=== PATIENT | female | born 1960 | race Caucasian/White ===

== ENCOUNTER 2016-05-03 08:56 | Day surgery (SDC) | payer MEDICAID ==
[2016-05-03] VITALS (253 sets, daily range): BP systolic 98–131; BP diastolic 41–82; PULSE 57–69; TEMP 97.5–98.7; O2SAT 90–100
[~2016-05-03] VITALS: Ht 162.6 cm; Wt 94.1 kg
[~2016-05-03 08:56] MED LIST: ACTOS 15MG TAB15 MG PO; ACTOS 45MG45 MG/TAB PO; ACTOS30 MG PO; ASPIRIN 81M81 MG/TA2 PO; ASPIRIN E.C. 8181 MG PO; BUPROPION HCL150 M1 PO; BUSPAR; BUSPAR DIVIDOSE15 MG PO; BUSPIRONE; CEPHALEXIN500 M1 PO; CHLOR TRIMETON 44 MG PO; CHLORTHALIDONE25 MG PO; FENTANYL; FENTANYL 75MCG TP; FORTAMET1000 MG PO; FORTAMET500 MG PO; IBUPROFEN600 MG PO; JANUVIA50 MG PO; KLONOPIN 0.5MG0.5 MG PO; KLONOPIN 1MG1 MG PO; KLONOPIN1 MG PO; LORTAB 5/500 501 TAB PO; LYRICA; LYRICA100 MG PO; METFORMIN500 MG PO; METHOCARBAMOL500 MG PO; METHOCARBAMOL750 MG PO; MICARDIS 40MG40 MG PO; MICARDIS20 MG PO; MICARDIS40 MG PO; MOTRIN 200200 MG/TAB PO; MOTRIN 600600 MG/TAB PO; PRAVACHOL10 MG PO; PROTONIX 40MG T40 MG PO; PROZAC 10MG10 MG PO; PROZAC10 MG PO; ROBAXIN 75750 MG/TAB PO; VICODIN 5/5001 UDTAB PO; WELLBUTRIN 100100 MG PO; WELLBUTRIN SR150 M1 PO; WELLBUTRIN75 MG PO; XANAX 0.5MG0.5 MG PO; ZOCOR 40MG40 MG PO
[2016-05-03 09:52] LABS: CALCIUM 9.3 mg/dL (8.4-10.2); CREATININE, serum 0.73 mg/dL (0.52-1.25); POTASSIUM 3.9 mmol/L (3.4-5.0)
[2016-05-03 10:44] LABS: MEAN CELL VOLUME 85 fl (80.0-100.0); MEAN CORPUSCULAR HGB CONC 33 g/dl (33.0-37.0); MEAN PLATELET VOLUME 10.1 fl (7.4-10.4); PLATELET COUNT 240 K/mm3 (130-400); RED BLOOD COUNT 4.18 M/mm3 (4.10-5.30); REDCELL DISTRIBUTION WIDTH-CV 13.8 % (11.5-14.5); WHITE BLOOD COUNT 7.5 K/mm3 (4.8-10.8)
[2016-05-03 10:46] LABS: INR 1.1 (0.8-3.0); PROTHROMBIN TIME 12.3 SECONDS (9.7-12.8)
[2016-05-03 10:48] LABS: HEMATOCRIT 35.6 % (37.0-47.0); HEMOGLOBIN 11.6 g/dl (12.5-16.0); MEAN CORPUSCULAR HEMOGLOBIN 28 pg (27.0-31.0)
[2016-05-03] MEDS ORDERED: REQUIP 0.5MG0.5 MG PO (10:59)
[2016-05-03] MEDS ORDERED: LYRICA200 MG PO (11:00)
[2016-05-03] MEDS ORDERED: PROZAC40 MG PO (11:04)
[2016-05-03] MEDS ORDERED: TESSALON P100 MG/CAP PO (11:05)
[2016-05-03] MEDS ORDERED: GLUCOPHAGE1000 MG PO (11:06)
[2016-05-03] MEDS ORDERED: ATIVAN 0.50.5 MG/TAB PO (11:07)
[2016-05-03] MEDS ORDERED: GARCINIA CAMBOGIA PO (11:10)
[2016-05-03] MEDS ORDERED: NORCO 325 MG-7.1 TAB PO (11:11)
[2016-05-03] MEDS ORDERED: COZAAR 50MG50 MG/TAB PO (11:12)
[2016-05-03] MEDS ORDERED: PROTONIX 40MG T40 MG PO (11:13)
[2016-05-03] MEDS ORDERED: VITAMIN D32000 I1 PO (11:14)
[2016-05-03] MEDS ORDERED: LIORESAL20 MG PO (11:15)
[2016-05-03] MEDS ORDERED: VENTOLIN0.09 MG IH (11:16)
[2016-05-03] MEDS ORDERED: PHENERGAN 25 TA25 MG PO (11:18)
[2016-05-03] MEDS ORDERED: MAG-OX 400400 MG/TAB PO (11:19)
[2016-05-03] MEDS ORDERED: WELLBUTRIN SR200 MG PO (11:20)
[2016-05-04] VITALS (408 sets, daily range): BP systolic 101–139; BP diastolic 64–90; PULSE 61–78; TEMP 98.1–98.3; O2SAT 79–100
[2016-05-04 06:00] LABS: BASO # 0.1 (0.0-0.2); EOS # 0.3 (0.0-0.7); EOS % 3.6 % (0-4.0); GRAN # 3.7 (1.4-6.5); GRAN % 54.1 % (42.2-75.2); LYMPH # 2.4 (1.2-3.4); LYMPH % 34.4 % (20.0-51.0); MEAN CELL VOLUME 86 fl (80.0-100.0); MEAN CORPUSCULAR HGB CONC 32 g/dl (33.0-37.0); MEAN PLATELET VOLUME 9.9 fl (7.4-10.4); MONO # 0.5 (0.1-0.6); MONO % 6.6 % (1.7-9.3); PLATELET COUNT 231 K/mm3 (130-400); RED BLOOD COUNT 4.08 M/mm3 (4.10-5.30); REDCELL DISTRIBUTION WIDTH-CV 13.9 % (11.5-14.5); WHITE BLOOD COUNT 6.9 K/mm3 (4.8-10.8)
[2016-05-04 06:07] LABS: HEMATOCRIT 34.9 % (37.0-47.0); HEMOGLOBIN 11.3 g/dl (12.5-16.0); MEAN CORPUSCULAR HEMOGLOBIN 28 pg (27.0-31.0)
[2016-05-04 06:24] LABS: CALCIUM 8.8 mg/dL (8.4-10.2); CREATININE, serum 0.66 mg/dL (0.52-1.25); POTASSIUM 3.7 mmol/L (3.4-5.0)
[2016-05-04] MEDS ORDERED: EFFIENT10 MG PO (09:21)
[2016-05-04] MEDS ORDERED: TOPROL XL 25MG25 MG PO (09:21)
== END 2016-05-04 10:53 | disposition home or self-care (01) ==
LOC: EUO 08:56 → ICU 12:00 → IMCU 18:45 → EUO 05-04 10:53
PROVIDERS: Internal Medicine Cardiovascular Disease
DX: R07.9 Chest pain, unspecified (principal); I25.10 Atherosclerotic heart disease of native coronary artery without angina pectoris; I10 Essential (primary) hypertension; E11.9 Type 2 diabetes mellitus without complications; K21.9 Gastro-esophageal reflux disease without esophagitis; Z87.891 Personal history of nicotine dependence
CPT/HCPCS: OP; C1760; C1769; C1874; C9600; J0583; J2250; J3010

== ENCOUNTER 2016-07-13 07:23 | Day surgery (SDC) | payer MEDICAID ==
[~2016-07-13] VITALS: Ht 162.7 cm; Wt 92.7 kg
[2016-07-13] VITALS (12 sets, daily range): BP systolic 91–138; BP diastolic 54–73; PULSE 64–82; TEMP 98
[~2016-07-13 07:23] MED LIST changes: +ATIVAN 0.50.5 MG/TAB PO; +COZAAR 50MG50 MG/TAB PO; +EFFIENT10 MG PO; +GARCINIA CAMBOGIA PO; +GLUCOPHAGE1000 MG PO; +LIORESAL20 MG PO; +LYRICA200 MG PO; +MAG-OX 400400 MG/TAB PO; +NORCO 325 MG-7.1 TAB PO; +PHENERGAN 25 TA25 MG PO; +PROZAC40 MG PO; +REQUIP 0.5MG0.5 MG PO; +TESSALON P100 MG/CAP PO; +TOPROL XL 25MG25 MG PO; +VENTOLIN0.09 MG IH; +VITAMIN D32000 I1 PO; +WELLBUTRIN SR200 MG PO
[2016-07-13 08:16] LABS: HEMATOCRIT 37.4 % (37.0-47.0); HEMOGLOBIN 12.3 g/dl (12.5-16.0); MEAN CELL VOLUME 83 fl (80.0-100.0); MEAN CORPUSCULAR HEMOGLOBIN 27 pg (27.0-31.0); MEAN CORPUSCULAR HGB CONC 33 g/dl (33.0-37.0); MEAN PLATELET VOLUME 10.1 fl (7.4-10.4); PLATELET COUNT 280 K/mm3 (130-400); RED BLOOD COUNT 4.52 M/mm3 (4.10-5.30); REDCELL DISTRIBUTION WIDTH-CV 14.2 % (11.5-14.5); WHITE BLOOD COUNT 7.7 K/mm3 (4.8-10.8)
[2016-07-13] MEDS ORDERED: PLAVIX 75MG TAB75 MG PO (08:40)
[2016-07-13] MEDS ORDERED: OMEGA-3 1000 MG1 CAP PO (08:46)
[2016-07-13 08:54] LABS: INR 1.2 (0.8-3.0); PROTHROMBIN TIME 13.4 SECONDS (9.7-12.8)
[2016-07-13 09:01] LABS: CALCIUM 9.2 mg/dL (8.4-10.2); CREATININE, serum 0.68 mg/dL (0.52-1.25); POTASSIUM 3.4 mmol/L (3.4-5.0)
== END 2016-07-13 16:09 | disposition home or self-care (01) ==
LOC: EUO 07:23
PROVIDERS: Internal Medicine Cardiovascular Disease
DX: I25.119 Atherosclerotic heart disease of native coronary artery with unspecified angina pectoris (principal); I35.9 Nonrheumatic aortic valve disorder, unspecified; I05.9 Rheumatic mitral valve disease, unspecified; R01.1 Cardiac murmur, unspecified; E78.5 Hyperlipidemia, unspecified; Z95.5 Presence of coronary angioplasty implant and graft; Z79.01 Long term (current) use of anticoagulants
CPT/HCPCS: C1760; J2250; J3010; Q9967

== ENCOUNTER 2016-10-14 09:39 | Inpatient (IN) | payer MEDICAID ==
[~2016-10-14] VITALS: Ht 162.6 cm; Wt 88.8 kg
[~2016-10-14 09:39] MED LIST changes: +OMEGA-3 1000 MG1 CAP PO; +PLAVIX 75MG TAB75 MG PO
[2016-10-14 10:22] VITALS: BP 112/54; PULSE 47; TEMP 98.5
[2016-10-14 12:05] LABS: BASO # 0.1 (0.0-0.2); BASO % 0.6 % (0.0-2.0); EOS # 0.1 (0.0-0.7); EOS % 0.4 % (0-4.0); GRAN % 86.4 % (42.2-75.2); HEMATOCRIT 37.1 % (37.0-47.0); HEMOGLOBIN 12.3 g/dl (12.5-16.0); LYMPH # 1.2 (1.2-3.4); MEAN CELL VOLUME 87 fl (80.0-100.0); MEAN CORPUSCULAR HEMOGLOBIN 29 pg (27.0-31.0); MEAN CORPUSCULAR HGB CONC 33 g/dl (33.0-37.0); MEAN PLATELET VOLUME 10.8 fl (7.4-10.4); MONO # 0.9 (0.1-0.6); MONO % 5.1 % (1.7-9.3); PLATELET COUNT 297 K/mm3 (130-400); RED BLOOD COUNT 4.25 M/mm3 (4.10-5.30); WHITE BLOOD COUNT 17.4 K/mm3 (4.8-10.8)
[2016-10-14 12:26] LABS: ADJUSTED CALCIUM 9.4 mg/dL (8.4-10.2); ALBUMIN 3.6 gm/dL (3.5-5.0); BILIRUBIN,TOTAL 3.7 mg/dL (0.0-1.0); CALCIUM 9.1 mg/dL (8.4-10.2); CREATININE, serum 0.98 mg/dL (0.52-1.25); POTASSIUM 4.6 mmol/L (3.4-5.0); TOTAL PROTEIN 7.3 gm/dL (6.4-8.2)
[2016-10-14 16:00] VITALS: BP 101/83; PULSE 85; TEMP 99
[2016-10-14 22:21] VITALS: BP 117/85; PULSE 79; TEMP 99.1
[2016-10-15] VITALS (10 sets, daily range): BP systolic 117–144; BP diastolic 53–72; PULSE 65–79; TEMP 97.4–98.7
[2016-10-15 06:54] LABS: BASO # 0.1 (0.0-0.2); BASO % 0.6 % (0.0-2.0); EOS # 0.1 (0.0-0.7); GRAN # 7.3 (1.4-6.5); GRAN % 71.1 % (42.2-75.2); LYMPH # 1.8 (1.2-3.4); LYMPH % 17.6 % (20.0-51.0); MEAN CELL VOLUME 87 fl (80.0-100.0); MEAN CORPUSCULAR HGB CONC 33 g/dl (33.0-37.0); MEAN PLATELET VOLUME 11.4 fl (7.4-10.4); MONO # 0.9 (0.1-0.6); MONO % 9.2 % (1.7-9.3); PLATELET COUNT 288 K/mm3 (130-400); RED BLOOD COUNT 4.01 M/mm3 (4.10-5.30); REDCELL DISTRIBUTION WIDTH-CV 15.9 % (11.5-14.5); WHITE BLOOD COUNT 10.3 K/mm3 (4.8-10.8)
[2016-10-15 06:57] LABS: HEMATOCRIT 34.9 % (37.0-47.0); HEMOGLOBIN 11.6 g/dl (12.5-16.0); MEAN CORPUSCULAR HEMOGLOBIN 29 pg (27.0-31.0)
[2016-10-15 07:05] LABS: ADJUSTED CALCIUM 9.5 mg/dL (8.4-10.2); ALBUMIN 3.5 gm/dL (3.5-5.0); BILIRUBIN,TOTAL 2.1 mg/dL (0.0-1.0); CALCIUM 9.1 mg/dL (8.4-10.2); CREATININE, serum 0.79 mg/dL (0.52-1.25); POTASSIUM 3.9 mmol/L (3.4-5.0); TOTAL PROTEIN 7.1 gm/dL (6.4-8.2)
[2016-10-16 04:18] VITALS: BP 155/71; PULSE 82; TEMP 99.4
[2016-10-16 09:53] VITALS: BP 137/61; PULSE 67; TEMP 98.8
[2016-10-16 13:36] VITALS: BP 108/52; PULSE 67; TEMP 99.1
[2016-10-16 17:51] VITALS: BP 147/56; PULSE 77; TEMP 98.8
[2016-10-16 20:28] VITALS: BP 119/95; PULSE 82; TEMP 99.2
[2016-10-17 00:33] VITALS: BP 110/39; PULSE 79; TEMP 98.5
[2016-10-17 06:03] VITALS: BP 106/50; PULSE 77; TEMP 97.8
[2016-10-17 10:38] VITALS: BP 125/59; PULSE 79; TEMP 99
== END 2016-10-17 13:50 | disposition home or self-care (01) | DRG 418 ==
LOC: SURG 09:39
PROVIDERS: Nurse Practitioner Family; Surgery
PROC: 0FC98ZZ Extirpation of Matter from Common Bile Duct, Via Natural or Artificial Opening Endoscopic (ICD-10-PCS; 2016-10-14)
PROC: BF101ZZ Fluoroscopy of Bile Ducts using Low Osmolar Contrast (ICD-10-PCS; 2016-10-15)
PROC: 0FT44ZZ Resection of Gallbladder, Percutaneous Endoscopic Approach (ICD-10-PCS; principal; 2016-10-15 15:00)
DX: K80.64 Calculus of gallbladder and bile duct with chronic cholecystitis without obstruction (principal); N17.9 Acute kidney failure, unspecified; I25.10 Atherosclerotic heart disease of native coronary artery without angina pectoris; I10 Essential (primary) hypertension; E11.9 Type 2 diabetes mellitus without complications; Z95.5 Presence of coronary angioplasty implant and graft; Z87.891 Personal history of nicotine dependence; G89.21 Chronic pain due to trauma
CPT/HCPCS: 99223-AI; 99232-AI; 99233-AI; 99238; 99239; C1769; J0696; J1815; J2270; J2405; J2550; J2704; J3010; J7030; Q9967

== ENCOUNTER 2018-02-07 07:12 | Inpatient (IN) | payer MEDICAID ==
[2018-02-07] VITALS (898 sets, daily range): BP systolic 141–193; BP diastolic 71–105; PULSE 68–87; TEMP 98–98.9; O2SAT 90–100
[~2018-02-07] VITALS: Ht 162.6 cm; Wt 90.0 kg
[~2018-02-07 07:12] MED LIST changes: +LOPRESSOR 225 MG/TAB PO; -TOPROL XL 25MG25 MG PO
[2018-02-07] MEDS ORDERED: ZOCOR 20MG20 MG PO (07:26)
[2018-02-07] MEDS ORDERED: ZANTAC 150150 MG (07:27)
[2018-02-07] MEDS ORDERED: NEURONTIN300 MG/CAP PO (07:30)
[2018-02-07 07:31] LABS: BASO # 0.1 (0.0-0.2); BASO % 1.1 % (0.0-2.0); EOS # 0.3 (0.0-0.7); EOS % 3.1 % (0-4.0); GRAN # 4.5 (1.4-6.5); GRAN % 51.2 % (42.2-75.2); HEMATOCRIT 41.6 % (37.0-47.0); HEMOGLOBIN 13.7 g/dl (12.5-16.0); LYMPH # 3.2 (1.2-3.4); LYMPH % 36.3 % (20.0-51.0); MEAN CELL VOLUME 87 fl (80.0-100.0); MEAN CORPUSCULAR HEMOGLOBIN 29 pg (27.0-31.0); MEAN CORPUSCULAR HGB CONC 33 g/dl (33.0-37.0); MEAN PLATELET VOLUME 9.8 fl (7.4-10.4); MONO # 0.7 (0.1-0.6); PLATELET COUNT 267 K/mm3 (130-400); RED BLOOD COUNT 4.79 M/mm3 (4.10-5.30); REDCELL DISTRIBUTION WIDTH-CV 14.5 % (11.5-14.5)
[2018-02-07] MEDS ORDERED: CRANBERRY500 M3 PO (07:31)
[2018-02-07] MEDS ORDERED: GARCINIA CAMBOGIA (07:34)
[2018-02-07] MEDS ORDERED: LIDOCAINE HCL100 M1 MM (07:34)
[2018-02-07 07:37] LABS: PROTHROMBIN TIME 11.3 SECONDS (9.7-12.8)
[2018-02-07 07:48] LABS: ALANINE AMINOTRANSFERASE 14 U/L (9-52); ALBUMIN 4.2 gm/dL (3.5-5.0); ALKALINE PHOSPHATASE 75 U/L (50-136); ANION GAP 7 mmol/L (7-16); AST,SGOT 21 U/L (15-37); BILIRUBIN,TOTAL 0.5 mg/dL (0.0-1.0); BLOOD UREA NITROGEN 11 mg/dL (7-17); CALCIUM 9.2 mg/dL (8.4-10.2); CARBON DIOXIDE 31 mmol/L (22-30); CHLORIDE 105 mmol/L (98-107); CREATININE, serum 0.56 mg/dL (0.52-1.25); GLUCOSE 108 mg/dL (74-106); POTASSIUM 3.6 mmol/L (3.4-5.0); SODIUM 143 mmol/L (137-145); TOTAL PROTEIN 7.7 gm/dL (6.4-8.2)
[2018-02-07 08:01] LABS: TROPONIN-I < 0.012 ng/mL (0.000-0.034)
[2018-02-07] MEDS ORDERED: FENTANYL 75MCG TD (08:28)
[2018-02-07 11:10] LABS: CHOLESTEROL RISK RATIO 4.5
[2018-02-07 11:41] LABS: THYROID STIMULATING HORMONE 2.83 uIU/mL (0.465-4.680)
[2018-02-08] VITALS (1416 sets, daily range): BP systolic 105–164; BP diastolic 65–96; PULSE 64–91; TEMP 98–99.3; O2SAT 76–100
[2018-02-08 03:32] LABS: BASO # 0.1 (0.0-0.2); EOS # 0.1 (0.0-0.7); EOS % 1.1 % (0-4.0); GRAN # 5.9 (1.4-6.5); HEMATOCRIT 37.3 % (37.0-47.0); HEMOGLOBIN 12.4 g/dl (12.5-16.0); LYMPH % 22.9 % (20.0-51.0); MEAN CELL VOLUME 86 fl (80.0-100.0); MEAN CORPUSCULAR HEMOGLOBIN 29 pg (27.0-31.0); MEAN CORPUSCULAR HGB CONC 33 g/dl (33.0-37.0); MEAN PLATELET VOLUME 9.3 fl (7.4-10.4); MONO # 0.6 (0.1-0.6); MONO % 6.8 % (1.7-9.3); PLATELET COUNT 241 K/mm3 (130-400); RED BLOOD COUNT 4.35 M/mm3 (4.10-5.30); REDCELL DISTRIBUTION WIDTH-CV 14.3 % (11.5-14.5)
[2018-02-08 03:47] LABS: CALCIUM 8.8 mg/dL (8.4-10.2); CREATININE, serum 0.56 mg/dL (0.52-1.25); POTASSIUM 3.4 mmol/L (3.4-5.0)
[2018-02-09] VITALS (643 sets, daily range): BP systolic 111–129; BP diastolic 65–77; PULSE 66–83; TEMP 98.1–98.6; O2SAT 85–100
[2018-02-09 05:43] LABS: BASO # 0.1 (0.0-0.2); BASO % 1.1 % (0.0-2.0); EOS # 0.2 (0.0-0.7); EOS % 2.1 % (0-4.0); GRAN # 5.6 (1.4-6.5); GRAN % 65.4 % (42.2-75.2); HEMOGLOBIN 11.5 g/dl (12.5-16.0); LYMPH # 1.9 (1.2-3.4); LYMPH % 22.2 % (20.0-51.0); MEAN CELL VOLUME 87 fl (80.0-100.0); MEAN CORPUSCULAR HEMOGLOBIN 29 pg (27.0-31.0); MEAN CORPUSCULAR HGB CONC 33 g/dl (33.0-37.0); MEAN PLATELET VOLUME 9.2 fl (7.4-10.4); MONO # 0.8 (0.1-0.6); PLATELET COUNT 234 K/mm3 (130-400); RED BLOOD COUNT 4.01 M/mm3 (4.10-5.30); REDCELL DISTRIBUTION WIDTH-CV 14.6 % (11.5-14.5)
[2018-02-09 05:56] LABS: CALCIUM 8.8 mg/dL (8.4-10.2); CREATININE, serum 0.57 mg/dL (0.52-1.25)
[2018-02-09] MEDS ORDERED: LIPITOR 40MG TA40 MG PO (09:13)
[2018-02-09] MEDS ORDERED: ASPI325T6 PO (09:13)
== END 2018-02-09 15:05 | disposition home or self-care (01) | DRG 63 ==
LOC: COL.ER 07:12 → ICU 08:03
PROVIDERS: Emergency Medicine; Hospitalist; Psychiatry & Neurology Neurology
DX: I63.89 Other cerebral infarction (principal); R29.810 Facial weakness; R47.81 Slurred speech; R20.8 Other disturbances of skin sensation; R29.707 NIHSS score 7; E83.42 Hypomagnesemia; I10 Essential (primary) hypertension; E78.5 Hyperlipidemia, unspecified; E11.9 Type 2 diabetes mellitus without complications; G25.81 Restless legs syndrome; F41.9 Anxiety disorder, unspecified; F32.9 Major depressive disorder, single episode, unspecified; K21.9 Gastro-esophageal reflux disease without esophagitis; G89.29 Other chronic pain; M54.9 Dorsalgia, unspecified; I25.10 Atherosclerotic heart disease of native coronary artery without angina pectoris; Z95.5 Presence of coronary angioplasty implant and graft; Z91.138 Patient's unintentional underdosing of medication regimen for other reason; I65.23 Occlusion and stenosis of bilateral carotid arteries
CPT/HCPCS: 99222-AI; 99232-AI; 99239; J1815; J2060; J2405; J2997; J3475; J3480; J7120